=== PATIENT | male | born 1985 | race Caucasian/White ===

== ENCOUNTER 2016-07-29 11:40 | Inpatient (IN) | payer MEDICARE, OTHER ==
[~2016-07-29] VITALS: Ht 182.9 cm; Wt 146.8 kg
[~2016-07-29 11:40] MED LIST: AMLO-512 PO; ASPI81TA2 PO; ATOR40TA28 PO; LISI40TA4 PO; METO50TA5 PO; NITR.4 SL; TICA90TA PO; VITAD1000 PO; [UNRECOGNIZED DRUG - CODE] IM
[2016-07-29 12:22] LABS: BASOPHILS % (AUTO) 0.9 % (0.0-2.0); EOSINOPHILS % (AUTO) 6.1 % (1.0-6.0); HEMATOCRIT 26.8 % (41-53); HEMOGLOBIN 8.5 g/dL (13.5-17.5); LYMPHOCYTES # (AUTO) 1.4 K/uL (1.0-4.8); LYMPHOCYTES % (AUTO) 15.2 % (22.0-44.0); MEAN CORPUSCULAR HEMOGLOBIN 26.9 pg (26.0-34.0); MEAN CORPUSCULAR HGB CONC 31.8 G/dL (31.0-37.0); MEAN CORPUSCULAR VOLUME 85 fL (80-100); MONOCYTES # (AUTO) 0.8 K/uL (0.1-1.0); MONOCYTES % (AUTO) 8.5 % (2.0-9.0); NEUTROPHILS # (AUTO) 6.3 K/uL (1.8-7.7); NEUTROPHILS % (AUTO) 69.3 % (40.0-70.0); PLATELET COUNT (AUTO) 231 K/uL (150-450); RED BLOOD CELL COUNT(AUTO) 3.17 MIL/uL (4.50-5.90); RED CELL DISTRIBUTION WIDTH 16.5 % (11.5-14.5); WHITE BLOOD COUNT (AUTO) 9.1 K/uL (4.5-11.0)
[2016-07-29] MEDS ORDERED: ONDANSETRON HCL 4 MG/2 ML VIAL IVP ONE (12:45)
[2016-07-29 13:01] LABS: ALBUMIN 3.5 g/dL (3.4-5.0); BILIRUBIN,TOTAL 0.3 mg/dL (0.1-1.0); CALCIUM, TOTAL 7.8 mg/dL (8.8-10.5); CREATININE 15.78 mg/dL (0.60-1.30); TOTAL PROTEIN, SERUM 7.5 g/dL (6.4-8.2)
[2016-07-29 13:03] LABS: PROTHROMBIN TIME 10.5 SEC (9.4-11.6)
[2016-07-29 13:06] LABS: POTASSIUM 7.4 mmol/L (3.5-5.1)
[2016-07-29] MEDS ORDERED: DEXTROSE 50%-WATER 25 GM/50 ML SYRINGE IVP ONE (13:15)
[2016-07-29] MEDS ORDERED: SODIUM BICARBONATE [ADULT] 8.4% 50 MEQ/50 ML SYRINGE IVP ONE (13:15)
[2016-07-29] MEDS ORDERED: INSULIN REGULAR, HUMAN 100 UNITS/ML IVP ONE (13:15)
[2016-07-29] MEDS ORDERED: CALCIUM GLUCONATE 0.465 MEQ/ML 10 ML VIAL IVP ONE (13:15)
[2016-07-29] MEDS ORDERED: CALCIUM GLUCONATE 100 MG/ML 10 ML IVP ONE (13:30)
[2016-07-29] MEDS ORDERED: ALBUTEROL SULFATE 5 MG/ML 20 ML NEB SOLN [BULK] NEB ONE (13:45)
[2016-07-29] MEDS ORDERED: 0.9% SODIUM CHLORIDE 5 ML NEB SOLUTION NEB ONE ×2 (13:52)
[2016-07-29 17:20] LABS: BASOPHILS % (AUTO) 0.6 % (0.0-2.0); EOSINOPHILS % (AUTO) 2.4 % (1.0-6.0); HEMATOCRIT 25.6 % (41-53); HEMOGLOBIN 8.1 g/dL (13.5-17.5); LYMPHOCYTES # (AUTO) 1.2 K/uL (1.0-4.8); LYMPHOCYTES % (AUTO) 11.3 % (22.0-44.0); MEAN CORPUSCULAR HEMOGLOBIN 26.6 pg (26.0-34.0); MEAN CORPUSCULAR HGB CONC 31.5 G/dL (31.0-37.0); MEAN CORPUSCULAR VOLUME 84 fL (80-100); MONOCYTES # (AUTO) 0.6 K/uL (0.1-1.0); MONOCYTES % (AUTO) 6.2 % (2.0-9.0); NEUTROPHILS # (AUTO) 8.3 K/uL (1.8-7.7); NEUTROPHILS % (AUTO) 79.5 % (40.0-70.0); PLATELET COUNT (AUTO) 144 K/uL (150-450); RED BLOOD CELL COUNT(AUTO) 3.03 MIL/uL (4.50-5.90); RED CELL DISTRIBUTION WIDTH 16.2 % (11.5-14.5); WHITE BLOOD COUNT (AUTO) 10.5 K/uL (4.5-11.0)
[2016-07-29 17:47] LABS: CALCIUM, TOTAL 7.9 mg/dL (8.8-10.5); CREATININE 12.73 mg/dL (0.60-1.30)
[2016-07-29] MEDS ORDERED: LIDOCAINE HCL/PF 1% 2 ML VIAL INJ ONE (17:59)
[2016-07-29 18:04] VITALS: BP 158/107
[2016-07-29] MEDS ORDERED: ZOLPIDEM TARTRATE 5 MG TABLET PO PRN (19:00)
[2016-07-29] MEDS ORDERED: MAGNESIUM HYDROXIDE SUSPENSION 30 ML UDCUP PO PRN (19:00)
[2016-07-29] MEDS ORDERED: IPRATROPIUM BROMIDE 0.5 MG/2.5 ML NEB SOLUTION NEB PRN (19:00)
[2016-07-29] MEDS ORDERED: MORPHINE SULFATE 2 MG/ML SYRINGE IVP PRN (19:00)
[2016-07-29] MEDS ORDERED: BISACODYL 10 MG RECTAL RECTAL SUPPOSITORY PR PRN (19:00)
[2016-07-29] MEDS ORDERED: ACETAMINOPHEN 325 MG TABLET PO PRN (19:00)
[2016-07-29] MEDS ORDERED: ONDANSETRON HCL 4 MG/2 ML VIAL IVP PRN (19:00)
[2016-07-29] MEDS ORDERED: ALBUTEROL SULFATE 2.5 MG/0.5 ML NEB SOLUTION NEB PRN (19:00)
[2016-07-29] MEDS ORDERED: HYDROCODONE/ACETAMINOPHEN 5-325 MG TABLET PO PRN (19:00)
[2016-07-29] MEDS ORDERED: HydrALAZINE HCL 20 MG/ML VIAL IVP PRN (19:15)
[2016-07-29 19:47] VITALS: BP 160/90
[2016-07-29] MEDS ORDERED: PANTOPRAZOLE SODIUM 40 MG/VIAL IVP SCH (21:00)
[2016-07-29] MEDS: DOCUSATE SODIUM 100 MG CAPSULE PO SCH (21:08)
[2016-07-29] MEDS: PANTOPRAZOLE SODIUM 40 MG/VIAL IVP SCH (21:08)
[2016-07-29 23:38] VITALS: BP 141/50
[2016-07-30] MEDS ORDERED: LIDOCAINE HCL/PF 2% 5 ML VIAL INJ ONE
[2016-07-30] MEDS ORDERED: PROPOFOL 1% 20 ML VIAL IVP ONE
[2016-07-30 04:16] VITALS: BP 147/72
[2016-07-30 07:27] VITALS: BP 141/77
[2016-07-30 07:32] LABS: BASOPHILS # (AUTO) 0.08 K/uL (0.00-0.20); BASOPHILS % (AUTO) 0.8 % (0.0-2.0); EOSINOPHILS # (AUTO) 0.43 K/uL (0.00-0.70); HEMOGLOBIN 7.5 g/dL (13.5-17.5); LYMPHOCYTES # (AUTO) 1.2 K/uL (1.0-4.8); LYMPHOCYTES % (AUTO) 11.6 % (22.0-44.0); MEAN CORPUSCULAR HEMOGLOBIN 27.4 pg (26.0-34.0); MEAN CORPUSCULAR HGB CONC 32.5 G/dL (31.0-37.0); MEAN CORPUSCULAR VOLUME 84 fL (80-100); MONOCYTES # (AUTO) 0.6 K/uL (0.1-1.0); MONOCYTES % (AUTO) 5.9 % (2.0-9.0); NEUTROPHILS # (AUTO) 7.6 K/uL (1.8-7.7); NEUTROPHILS % (AUTO) 77.3 % (40.0-70.0); PLATELET COUNT (AUTO) 158 K/uL (150-450); RED BLOOD CELL COUNT(AUTO) 2.72 MIL/uL (4.50-5.90); RED CELL DISTRIBUTION WIDTH 16.8 % (11.5-14.5)
[2016-07-30 07:55] LABS: CALCIUM, TOTAL 7.4 mg/dL (8.8-10.5); CREATININE 13.65 mg/dL (0.60-1.30); MAGNESIUM 2.4 mg/dL (1.80-2.40); POTASSIUM 5.6 mmol/L (3.5-5.1)
[2016-07-30 08:03] LABS: WHITE BLOOD COUNT (AUTO) 13.9 K/uL (4.5-11.0)
[2016-07-30 08:33] LABS: PHOSPHORUS 11.6 mg/dL (2.5-4.9)
[2016-07-30] MEDS ORDERED: SODIUM CHLORIDE 0.9% 1,000 ML IV ONE ×3 (08:39→13:00)
[2016-07-30] MEDS ORDERED: ALBUMIN HUMAN 25%-12.5GM/50ML IV BOTTLE IV PRN (08:45)
[2016-07-30] MEDS ORDERED: MANNITOL 25%-12.5 GM/50 ML VIAL IVP PRN (08:45)
[2016-07-30 11:08] VITALS: BP 147/80
[2016-07-30 12:56] LABS: HEMATOCRIT 23.4 % (41-53); HEMOGLOBIN 7.5 g/dL (13.5-17.5)
[2016-07-30] MEDS ORDERED: MEPERIDINE-PF 25 MG/ML SYRINGE IVP PRN (15:15)
[2016-07-30] MEDS ORDERED: FentaNYL CITRATE-PF 100 MCG/2 ML VIAL IVP PRN (15:15)
[2016-07-30] MEDS ORDERED: HYDROmorphone 2 MG/ML SYRINGE IVP PRN (15:15)
[2016-07-30 16:36] VITALS: BP 158/83
[2016-07-30] MEDS: CHOLECALCIFEROL (VIT D3) 1,000 UNITS TABLET PO SCH (16:36)
[2016-07-30] MEDS: ATORVASTATIN CALCIUM 40 MG TABLET PO SCH (16:37)
[2016-07-30] MEDS: AmLODIPine BESYLATE 10 MG TABLET PO SCH (16:37)
[2016-07-30] MEDS: DOCUSATE SODIUM 100 MG CAPSULE PO SCH ×2 (16:37→20:42)
[2016-07-30] MEDS: PANTOPRAZOLE SODIUM 40 MG/VIAL IVP SCH ×2 (16:38→20:42)
[2016-07-30] MEDS: SEVELAMER CARBONATE 800 MG TABLET PO SCH (17:49)
[2016-07-30 19:27] VITALS: BP 141/78
[2016-07-30 20:40] LABS: HEMATOCRIT 21.2 % (41-53)
[2016-07-30] MEDS: OXYGEN THERAPY IH SCH (20:43)
[2016-07-30 20:45] LABS: HEMOGLOBIN 6.7 g/dL (13.5-17.5)
[2016-07-30 21:48] VITALS: BP 127/67
[2016-07-31] VITALS (22 sets, daily range): BP systolic 107–163; BP diastolic 58–99
[2016-07-31] MEDS ORDERED: 0.9% SODIUM CHLORIDE 10 ML SYRINGE IVP PRN (02:45)
[2016-07-31] MEDS ORDERED: SODIUM CHLORIDE 0.9% 500 ML IV ONE (03:55)
[2016-07-31] MEDS: OXYGEN THERAPY IH SCH (08:00)
[2016-07-31] MEDS: SEVELAMER CARBONATE 800 MG TABLET PO SCH ×2 (08:59→12:28)
[2016-07-31] MEDS: PANTOPRAZOLE SODIUM 40 MG/VIAL IVP SCH (08:59)
[2016-07-31] MEDS: CHOLECALCIFEROL (VIT D3) 1,000 UNITS TABLET PO SCH (09:00)
[2016-07-31] MEDS: AmLODIPine BESYLATE 10 MG TABLET PO SCH (09:00)
[2016-07-31] MEDS: ATORVASTATIN CALCIUM 40 MG TABLET PO SCH (09:00)
[2016-07-31] MEDS: DOCUSATE SODIUM 100 MG CAPSULE PO SCH (09:00)
[2016-07-31 11:34] LABS: BASOPHILS % (AUTO) 0.5 % (0.0-2.0); EOSINOPHILS % (AUTO) 4.6 % (1.0-6.0); HEMATOCRIT 23.1 % (41-53); HEMOGLOBIN 7.4 g/dL (13.5-17.5); LYMPHOCYTES # (AUTO) 0.8 K/uL (1.0-4.8); LYMPHOCYTES % (AUTO) 12.3 % (22.0-44.0); MEAN CORPUSCULAR HEMOGLOBIN 27.3 pg (26.0-34.0); MEAN CORPUSCULAR VOLUME 85 fL (80-100); MONOCYTES # (AUTO) 0.5 K/uL (0.1-1.0); MONOCYTES % (AUTO) 8.6 % (2.0-9.0); NEUTROPHILS # (AUTO) 4.6 K/uL (1.8-7.7); PLATELET COUNT (AUTO) 144 K/uL (150-450); RED BLOOD CELL COUNT(AUTO) 2.72 MIL/uL (4.50-5.90); RED CELL DISTRIBUTION WIDTH 15.8 % (11.5-14.5); WHITE BLOOD COUNT (AUTO) 6.2 K/uL (4.5-11.0)
[2016-07-31 11:43] LABS: CALCIUM, TOTAL 7.5 mg/dL (8.8-10.5); CREATININE 11.03 mg/dL (0.60-1.30); POTASSIUM 5.1 mmol/L (3.5-5.1)
[2016-07-31 11:47] LABS: MAGNESIUM 2.1 mg/dL (1.80-2.40)
[2016-08-01] MEDS ORDERED: EPOETIN ALFA 10,000 UNITS/ML VIAL SQ SCH (09:00)
== END 2016-07-31 18:00 | disposition home or self-care (01) | DRG 377 ==
LOC: EMS 11:43 → 5S 15:55
PROVIDERS: ADMIT Hospitalist; ATTEND Hospitalist
PROC: 5A1D60Z (ICD-10-PCS; 2016-07-29)
PROC: 0DB68ZX Excision of Stomach, Via Natural or Artificial Opening Endoscopic, Diagnostic (ICD-10-PCS; principal; 2016-07-30 14:30)
PROC: 30233N1 Transfusion of Nonautologous Red Blood Cells into Peripheral Vein, Percutaneous Approach (ICD-10-PCS; 2016-07-31)
DX: K92.2 Gastrointestinal hemorrhage, unspecified (principal); N18.6 End stage renal disease; E44.0 Moderate protein-calorie malnutrition; R78.81 Bacteremia; Z68.41 Body mass index [BMI] 40.0-44.9, adult; I12.0 Hypertensive chronic kidney disease with stage 5 chronic kidney disease or end stage renal disease; D50.0 Iron deficiency anemia secondary to blood loss (chronic); E87.5 Hyperkalemia; E78.5 Hyperlipidemia, unspecified; F14.90 Cocaine use, unspecified, uncomplicated; D63.1 Anemia in chronic kidney disease; I25.10 Atherosclerotic heart disease of native coronary artery without angina pectoris; E66.01 Morbid (severe) obesity due to excess calories; B95.61 Methicillin susceptible Staphylococcus aureus infection as the cause of diseases classified elsewhere; F19.10 Other psychoactive substance abuse, uncomplicated; K20.9 Esophagitis, unspecified; K29.60 Other gastritis without bleeding; E83.39 Other disorders of phosphorus metabolism; E21.3 Hyperparathyroidism, unspecified; F14.10 Cocaine abuse, uncomplicated; Z91.19 Patient's noncompliance with other medical treatment and regimen; Z99.2 Dependence on renal dialysis; Z82.49 Family history of ischemic heart disease and other diseases of the circulatory system; I25.2 Old myocardial infarction; Z95.5 Presence of coronary angioplasty implant and graft; Z87.891 Personal history of nicotine dependence
CPT/HCPCS: 82270; 82271; 83540; 83550; 83735; 84100; 84132; 85014; 85018; 86850; 86870; 86900; 86901; 86922; 87340; 88305; 88312; 88341; 88342; 90935; 93005; 94644; 96374; 96375; 99291; C9113; J0610; J0885; J1815; J2405; J2704; J3490; J7030; J7040; P9016

== ENCOUNTER → 2018-08-02 | Outpatient (CLI) | payer MEDICARE, OTHER ==
[~2018-08-02] MED LIST changes: -AMLO-512 PO; -ASPI81TA2 PO; -ATOR40TA28 PO; +GABA-531 PO; +LISI-662 PO; -LISI40TA4 PO; +METO50 PO; -METO50TA5 PO; +PHOSLOC PO; +REGADENOSON 0.4 MG/5 ML PF SYRINGE IVP ONE; +SESTAMIBI TC99M/UD ISOTOPE 1 EA INJ INJ ONE; +SEVEC800 PO; -TICA90TA PO; -VITAD1000 PO; -[UNRECOGNIZED DRUG - CODE] IM
[2018-08-02 09:10] VITALS: BP 153/98
[2018-08-02 10:43] VITALS: BP 157/85
== END | disposition home or self-care (01) ==
LOC: CARDMN 09:01
PROVIDERS: ATTEND Internal Medicine Cardiovascular Disease
DX: I08.1 Rheumatic disorders of both mitral and tricuspid valves (principal); I25.89 Other forms of chronic ischemic heart disease
CPT/HCPCS: 78452; 93017; 93306; A9500; J2785

== ENCOUNTER 2018-08-23 07:19 | Inpatient (IN) | payer MEDICARE, OTHER ==
[~2018-08-23] VITALS: Ht 182.9 cm; Wt 143.8 kg
[2018-08-23] VITALS (13 sets, daily range): BP systolic 149–186; BP diastolic 80–115
[~2018-08-23 07:19] MED LIST changes: -GABA-531 PO; -NITR.4 SL; -REGADENOSON 0.4 MG/5 ML PF SYRINGE IVP ONE; -SESTAMIBI TC99M/UD ISOTOPE 1 EA INJ INJ ONE; -SEVEC800 PO; +SODIUM CHLORIDE 0.9% 1,000 ML IV ONE; +TICA90TA PO
[2018-08-23] MEDS ORDERED: AMLO-512 PO (07:43)
[2018-08-23 07:58] LABS: BASOPHILS % (AUTO) 0.9 % (0.0-2.0); EOSINOPHILS % (AUTO) 6.9 % (1.0-6.0); HEMATOCRIT 33.3 % (41-53); HEMOGLOBIN 10.6 g/dL (13.5-17.5); LYMPHOCYTES % (AUTO) 18.2 % (22.0-44.0); MEAN CORPUSCULAR HEMOGLOBIN 29.3 pg (26.0-34.0); MEAN CORPUSCULAR HGB CONC 31.9 G/dL (31.0-37.0); MEAN CORPUSCULAR VOLUME 92 fL (80-100); MONOCYTES # (AUTO) 0.6 K/uL (0.1-1.0); MONOCYTES % (AUTO) 10.3 % (2.0-9.0); NEUTROPHILS # (AUTO) 3.5 K/uL (1.8-7.7); NEUTROPHILS % (AUTO) 63.7 % (40.0-70.0); PLATELET COUNT (AUTO) 111 K/uL (150-450); RED BLOOD CELL COUNT(AUTO) 3.63 MIL/uL (4.50-5.90); RED CELL DISTRIBUTION WIDTH 17.4 % (11.5-14.5)
[2018-08-23 08:02] LABS: CALCIUM, TOTAL 9.2 mg/dL (8.8-10.5); CREATININE 12.45 mg/dL (0.60-1.30); POTASSIUM 4.9 mmol/L (3.5-5.1)
[2018-08-23 08:08] LABS: ALBUMIN 3.9 g/dL (3.4-5.0); BILIRUBIN,TOTAL 0.5 mg/dL (0.1-1.0); PROTHROMBIN TIME 10.1 SEC (9.4-11.6); TOTAL PROTEIN, SERUM 8.1 g/dL (6.4-8.2)
[2018-08-23] MEDS ORDERED: LIDOCAINE/PF 1% 30 ML VIAL ONE (08:53)
[2018-08-23] MEDS ORDERED: HEPARIN SODIUM 1000 UNITS/NS 1,000 ML ONE (08:53)
[2018-08-23] MEDS ORDERED: IOHEXOL 300 MG/ML 150 ML VIAL ONE (08:53)
[2018-08-23] MEDS ORDERED: SODIUM BICARBONATE 50 MEQ/50 ML VIAL ONE (08:53)
[2018-08-23] MEDS ORDERED: HEPARIN SODIUM 2,000 UNITS in HEPARIN SODIUM 1000 UNITS/NS 1,000 ML IARTER ONE (09:39)
[2018-08-23] MEDS ORDERED: IOHEXOL 300 MG/ML 150 ML VIAL IARTER ONE (09:45)
[2018-08-23] MEDS ORDERED: LIDOCAINE 1% 30 ML/SOD BICARB 8.4% 4 ML SQ ONE (09:45)
[2018-08-23] MEDS ORDERED: HEPARIN SODIUM,PORCINE 5,000 UNITS/ML VIAL IVP ONE ×2 (09:45→10:30)
[2018-08-23] MEDS ORDERED: IOHEXOL 300 MG/ML 100 ML VIAL ONE (09:50)
[2018-08-23] MEDS ORDERED: IOHEXOL 300 MG/ML 50 ML VIAL ONE (09:50)
[2018-08-23] MEDS ORDERED: ASPIRIN 325 MG TABLET ONE (09:57)
[2018-08-23] MEDS ORDERED: TICAGRELOR 90 MG TABLET ONE (09:57)
[2018-08-23] MEDS ORDERED: TICAGRELOR 90 MG TABLET PO ONE (10:00)
[2018-08-23] MEDS ORDERED: ASPIRIN 325 MG TABLET PO ONE (10:00)
[2018-08-23] MEDS ORDERED: IOHEXOL 300 MG/ML 100 ML VIAL IARTER ONE (10:15)
[2018-08-23] MEDS ORDERED: IOHEXOL 300 MG/ML 50 ML VIAL IARTER ONE (10:15)
[2018-08-23] MEDS ORDERED: FentaNYL CITRATE-PF 100 MCG/2 ML VIAL IVP ONE (10:30)
[2018-08-23] MEDS ORDERED: FentaNYL CITRATE-PF 100 MCG/2 ML VIAL ONE (10:31)
[2018-08-23] MEDS ORDERED: ACETAMINOPHEN 325 MG TABLET PO PRN ×2 (10:45→12:00)
[2018-08-23] MEDS ORDERED: AmLODIPine BESYLATE 5 MG TABLET PO SCH (11:30)
[2018-08-23] MEDS ORDERED: MAGNESIUM HYDROXIDE SUSPENSION 30 ML UDCUP PO PRN (12:00)
[2018-08-23] MEDS: LISINOPRIL 20 MG TABLET PO SCH (12:12)
[2018-08-23] MEDS ORDERED: PNEUMOCOCCAL VACCINE POLYVALENT 0.5 ML VIAL [PPSV23] IM ONE (13:45)
[2018-08-23] MEDS: OxyCODONE HCL/ACETAMINOPHEN 5-325 MG TABLET PO PRN (18:37)
[2018-08-23] MEDS ORDERED: CloNIDine HCL 0.1 MG TABLET PO PRN (19:00)
[2018-08-23] MEDS: AmLODIPine BESYLATE 5 MG TABLET PO SCH (20:54)
[2018-08-23] MEDS: METOPROLOL TARTRATE 50 MG TABLET PO SCH (20:54)
[2018-08-23] MEDS: DOCUSATE SODIUM 100 MG CAPSULE PO SCH (20:54)
[2018-08-23] MEDS: TICAGRELOR 90 MG TABLET PO SCH (20:54)
[2018-08-24 04:59] VITALS: BP 141/77
[2018-08-24] MEDS: OxyCODONE HCL/ACETAMINOPHEN 5-325 MG TABLET PO PRN (05:26)
[2018-08-24 05:48] LABS: BASOPHILS % (AUTO) 0.7 % (0.0-2.0); EOSINOPHILS % (AUTO) 5.4 % (1.0-6.0); HEMOGLOBIN 10.5 g/dL (13.5-17.5); LYMPHOCYTES % (AUTO) 16.1 % (22.0-44.0); MEAN CORPUSCULAR HGB CONC 32.8 G/dL (31.0-37.0); MEAN CORPUSCULAR VOLUME 89 fL (80-100); MONOCYTES # (AUTO) 0.5 K/uL (0.1-1.0); MONOCYTES % (AUTO) 7.7 % (2.0-9.0); NEUTROPHILS # (AUTO) 4.5 K/uL (1.8-7.7); NEUTROPHILS % (AUTO) 70.1 % (40.0-70.0); PLATELET COUNT (AUTO) 103 K/uL (150-450); RED BLOOD CELL COUNT(AUTO) 3.61 MIL/uL (4.50-5.90); RED CELL DISTRIBUTION WIDTH 17.4 % (11.5-14.5)
[2018-08-24 06:11] LABS: ALBUMIN 3.6 g/dL (3.4-5.0); BILIRUBIN,TOTAL 0.6 mg/dL (0.1-1.0); CALCIUM, TOTAL 8.9 mg/dL (8.8-10.5); CREATININE 10.91 mg/dL (0.60-1.30); POTASSIUM 4.8 mmol/L (3.5-5.1); TOTAL PROTEIN, SERUM 7.7 g/dL (6.4-8.2)
[2018-08-24 07:38] VITALS: BP 156/82
[2018-08-24] MEDS: LISINOPRIL 20 MG TABLET PO SCH (08:03)
[2018-08-24] MEDS: DOCUSATE SODIUM 100 MG CAPSULE PO SCH (08:03)
[2018-08-24] MEDS: AmLODIPine BESYLATE 5 MG TABLET PO SCH (08:03)
[2018-08-24] MEDS: METOPROLOL TARTRATE 50 MG TABLET PO SCH (08:03)
[2018-08-24] MEDS: TICAGRELOR 90 MG TABLET PO SCH (08:04)
[2018-08-24] MEDS ORDERED: ASPIRIN 81 MG CHEWABLE TABLET PO SCH (09:00)
[2018-08-24] MEDS ORDERED: FAMOTIDINE 20 MG TABLET PO SCH (09:00)
[2018-08-24 11:25] VITALS: BP 155/92
== END 2018-08-24 13:35 | disposition home or self-care (01) | DRG 246 ==
LOC: CATHLAB 07:19 → ICU 07:20 → 5S 19:00
PROVIDERS: ADMIT Internal Medicine Cardiovascular Disease; ATTEND Internal Medicine Cardiovascular Disease
PROC: 027034Z Dilation of Coronary Artery, One Artery with Drug-eluting Intraluminal Device, Percutaneous Approach (ICD-10-PCS; principal; 2018-08-23)
PROC: 4A023N7 Measurement of Cardiac Sampling and Pressure, Left Heart, Percutaneous Approach (ICD-10-PCS; 2018-08-23)
PROC: B2111ZZ Fluoroscopy of Multiple Coronary Arteries using Low Osmolar Contrast (ICD-10-PCS; 2018-08-23)
PROC: 5A09357 Assistance with Respiratory Ventilation, Less than 24 Consecutive Hours, Continuous Positive Airway Pressure (ICD-10-PCS; 2018-08-23)
PROC: 5A1D70Z Performance of Urinary Filtration, Intermittent, Less than 6 Hours Per Day (ICD-10-PCS; 2018-08-23)
DX: I25.10 Atherosclerotic heart disease of native coronary artery without angina pectoris (principal); N18.6 End stage renal disease; I12.0 Hypertensive chronic kidney disease with stage 5 chronic kidney disease or end stage renal disease; Z68.41 Body mass index [BMI] 40.0-44.9, adult; E66.01 Morbid (severe) obesity due to excess calories; F14.10 Cocaine abuse, uncomplicated; D63.1 Anemia in chronic kidney disease; E78.00 Pure hypercholesterolemia, unspecified; E78.5 Hyperlipidemia, unspecified; G47.33 Obstructive sleep apnea (adult) (pediatric); Z79.899 Other long term (current) drug therapy; Z82.49 Family history of ischemic heart disease and other diseases of the circulatory system; Z87.891 Personal history of nicotine dependence; Z95.5 Presence of coronary angioplasty implant and graft; Z28.21 Immunization not carried out because of patient refusal
CPT/HCPCS: 87081; 92920; 92928; 93005; 94660; G0378; J1644; J3010; J3490; J7030; Q9967

== ENCOUNTER → 2020-08-28 | Outpatient (CLI) | payer MEDICARE, OTHER ==
[~2020-08-28] MED LIST changes: +AMLO-258 PO; -LISI-662 PO; +LISI-894 PO; +REGADENOSON 0.4 MG/5 ML PF SYRINGE IVP ONE; +SESTAMIBI TC99M/UD ISOTOPE 1 EA INJ INJ ONE; -SODIUM CHLORIDE 0.9% 1,000 ML IV ONE
[2020-08-28 08:30] VITALS: BP 141/95
[2020-08-28 10:34] VITALS: BP 137/85
== END | disposition home or self-care (01) ==
LOC: CARDMN 08:14
PROVIDERS: ATTEND Internal Medicine Cardiovascular Disease
DX: I51.7 Cardiomegaly (principal); I25.10 Atherosclerotic heart disease of native coronary artery without angina pectoris; I50.9 Heart failure, unspecified; I25.9 Chronic ischemic heart disease, unspecified
CPT/HCPCS: 93017; 93306; A9500

== ENCOUNTER 2021-12-08 16:23 | Emergency (ER) | payer MEDICARE, OTHER ==
[~2021-12-08] VITALS: Ht 185.4 cm; Wt 127.3 kg
[~2021-12-08 16:23] MED LIST changes: -REGADENOSON 0.4 MG/5 ML PF SYRINGE IVP ONE; -SESTAMIBI TC99M/UD ISOTOPE 1 EA INJ INJ ONE
[2021-12-08] MEDS ORDERED: PHENYLEPHRINE HCL 0.5% 15 ML NASAL SPRAY NASAL ONE (17:15)
[2021-12-08 17:22] LABS: BASOPHILS % (AUTO) 0.7 % (0.0-2.0); EOSINOPHILS % (AUTO) 7.9 % (1.0-6.0); HEMATOCRIT 29.3 % (41-53); HEMOGLOBIN 9.7 g/dL (13.5-17.5); LYMPHOCYTES # (AUTO) 0.8 K/uL (1.0-4.8); MEAN CORPUSCULAR HEMOGLOBIN 27.9 pg (26.0-34.0); MEAN CORPUSCULAR VOLUME 85 fL (80-100); MONOCYTES # (AUTO) 0.7 K/uL (0.1-1.0); MONOCYTES % (AUTO) 10.6 % (2.0-9.0); NEUTROPHILS # (AUTO) 4.4 K/uL (1.8-7.7); NEUTROPHILS % (AUTO) 68.8 % (40.0-70.0); PLATELET COUNT (AUTO) 148 K/uL (150-450); RED BLOOD CELL COUNT(AUTO) 3.46 MIL/uL (4.50-5.90); RED CELL DISTRIBUTION WIDTH 17.5 % (11.5-14.5)
[2021-12-08 17:30] LABS: CALCIUM, TOTAL 9.4 mg/dL (8.8-10.5); CREATININE 8.92 mg/dL (0.60-1.30); POTASSIUM 4.7 mmol/L (3.5-5.1)
[2021-12-08 17:36] LABS: ALBUMIN 3.7 g/dL (3.4-5.0); TOTAL PROTEIN, SERUM 7.4 g/dL (6.4-8.2)
[2021-12-08] MEDS ORDERED: LABETALOL HCL 5 MG/ML 20 ML VIAL IVP ONE (18:30)
[2021-12-08] MEDS ORDERED: AmLODIPine BESYLATE 10 MG TABLET PO ONE (18:30)
[2021-12-08] MEDS ORDERED: LISINOPRIL 10 MG TABLET PO ONE (19:00)
[2021-12-08 20:27] VITALS: BP 150/71
== END 2021-12-08 20:28 | disposition home or self-care (01) ==
LOC: EMS 16:23
DX: R04.0 Epistaxis (principal); I10 Essential (primary) hypertension; E78.00 Pure hypercholesterolemia, unspecified; F17.290 Nicotine dependence, other tobacco product, uncomplicated; Z79.899 Other long term (current) drug therapy
CPT/HCPCS: 99284; 96374; 80053; 85025; 36415; 30901; J3490

== ENCOUNTER 2021-12-21 19:53 | Emergency (ER) | payer MEDICARE, OTHER ==
[~2021-12-21] VITALS: Ht 177.8 cm; Wt 130.0 kg
[2021-12-21] MEDS ORDERED: PHENYLEPHRINE HCL 0.5% 15 ML NASAL SPRAY NASAL ONE (20:15)
[2021-12-21] MEDS ORDERED: TRANEXAMIC ACID 1,000 MG/10 ML VIAL TP ONE ×2 (20:30→23:30)
[2021-12-21 20:47] LABS: BASOPHILS % (AUTO) 0.3 % (0.0-2.0); EOSINOPHILS % (AUTO) 4.4 % (1.0-6.0); HEMATOCRIT 27.5 % (41-53); HEMOGLOBIN 9.1 g/dL (13.5-17.5); LYMPHOCYTES # (AUTO) 0.7 K/uL (1.0-4.8); LYMPHOCYTES % (AUTO) 7.9 % (22.0-44.0); MEAN CORPUSCULAR HEMOGLOBIN 28.8 pg (26.0-34.0); MEAN CORPUSCULAR VOLUME 87 fL (80-100); MONOCYTES # (AUTO) 0.5 K/uL (0.1-1.0); MONOCYTES % (AUTO) 5.9 % (2.0-9.0); NEUTROPHILS # (AUTO) 7.5 K/uL (1.8-7.7); NEUTROPHILS % (AUTO) 81.5 % (40.0-70.0); PLATELET COUNT (AUTO) 48 K/uL (150-450); RED BLOOD CELL COUNT(AUTO) 3.15 MIL/uL (4.50-5.90); RED CELL DISTRIBUTION WIDTH 19.4 % (11.5-14.5)
[2021-12-21 20:56] LABS: CALCIUM, TOTAL 9.1 mg/dL (8.8-10.5); CREATININE 6.89 mg/dL (0.60-1.30); POTASSIUM 3.8 mmol/L (3.5-5.1)
[2021-12-21 21:02] LABS: ALBUMIN 3.6 g/dL (3.4-5.0); BILIRUBIN,TOTAL 1.1 mg/dL (0.1-1.0); TOTAL PROTEIN, SERUM 7.4 g/dL (6.4-8.2)
[2021-12-21] MEDS ORDERED: CloNIDine HCL 0.2 MG TABLET PO ONE (21:30)
[2021-12-22 02:01] VITALS: BP 188/101
== END 2021-12-22 02:14 | disposition short-term general hospital (02) ==
LOC: EMS 20:04
DX: R04.0 Epistaxis (principal); I10 Essential (primary) hypertension; N18.6 End stage renal disease; Z99.2 Dependence on renal dialysis; Z98.890 Other specified postprocedural states
CPT/HCPCS: 99285; 71045; 80053; 82550; 83880; 84484; 85025; 36415; 30901; 93005; J3490

== ENCOUNTER 2022-05-09 10:32 | Emergency (ER) | payer MEDICARE, OTHER ==
[~2022-05-09] VITALS: Ht 182.9 cm; Wt 118.2 kg
[2022-05-09] MEDS ORDERED: LOSA-381 PO (10:49)
[2022-05-09] MEDS ORDERED: CLON-441 PO (10:49)
[2022-05-09] MEDS ORDERED: OXYMETAZOLINE HCL 0.05% 15 ML NASAL SPRAY NASAL ONE (12:45)
[2022-05-09 13:01] LABS: HEMATOCRIT 26.6 % (41-53); HEMOGLOBIN 8.5 g/dL (13.5-17.5); LYMPHOCYTES % (AUTO) 15.7 % (22.0-44.0); MEAN CORPUSCULAR HEMOGLOBIN 27.9 pg (26.0-34.0); MEAN CORPUSCULAR VOLUME 87 fL (80-100); MONOCYTES # (AUTO) 0.6 K/uL (0.1-1.0); MONOCYTES % (AUTO) 9.5 % (2.0-9.0); NEUTROPHILS # (AUTO) 4.3 K/uL (1.8-7.7); NEUTROPHILS % (AUTO) 65.8 % (40.0-70.0); PLATELET COUNT (AUTO) 103 K/uL (150-450); RED BLOOD CELL COUNT(AUTO) 3.04 MIL/uL (4.50-5.90); RED CELL DISTRIBUTION WIDTH 17.7 % (11.5-14.5)
[2022-05-09 13:14] LABS: INR 1.1 (0.9-1.1); PROTHROMBIN TIME 11.3 SEC (9.4-11.6)
[2022-05-09 13:18] LABS: CALCIUM, TOTAL 8.9 mg/dL (8.8-10.5); CREATININE 9.73 mg/dL (0.60-1.30); POTASSIUM 5.9 mmol/L (3.5-5.1)
[2022-05-09] MEDS ORDERED: METOPROLOL TARTRATE 50 MG TABLET PO ONE (13:30)
[2022-05-09] MEDS ORDERED: CloNIDine HCL 0.2 MG TABLET PO ONE (13:30)
[2022-05-09] MEDS ORDERED: LOSARTAN POTASSIUM 50 MG TABLET PO ONE (13:30)
[2022-05-09] MEDS ORDERED: AmLODIPine BESYLATE 10 MG TABLET PO ONE (13:30)
[2022-05-09] MEDS ORDERED: BACITRACIN 0.9 GM PACKET OINTMENT TP ONE (16:15)
[2022-05-09] MEDS ORDERED: BACITRACIN 28 GM OINTMENT TP ONE (16:45)
[2022-05-09] MEDS ORDERED: SODIUM POLYSTYRENE SULFONATE 15 GM/60 ML SUSPENSION BOTTLE PO ONE (17:30)
[2022-05-09 17:59] VITALS: BP 147/86
== END 2022-05-09 18:28 | disposition home or self-care (01) ==
LOC: EMS 10:46
DX: R04.0 Epistaxis (principal); I12.0 Hypertensive chronic kidney disease with stage 5 chronic kidney disease or end stage renal disease; N18.6 End stage renal disease; E87.5 Hyperkalemia; G47.33 Obstructive sleep apnea (adult) (pediatric); Z98.890 Other specified postprocedural states; Z99.2 Dependence on renal dialysis
CPT/HCPCS: 30901; 80048; 85025; 85610; 99284

== ENCOUNTER 2022-07-09 19:17 | Emergency (ER) | payer MEDICARE, OTHER ==
[~2022-07-09] VITALS: Ht 182.9 cm; Wt 118.0 kg
[~2022-07-09 19:17] MED LIST changes: +CLON-441 PO; +LOSA-381 PO
[2022-07-09] MEDS ORDERED: ASPIRIN 81 MG CHEWABLE TABLET PO ONE (20:00)
[2022-07-09] MEDS ORDERED: CloNIDine HCL 0.2 MG TABLET PO ONE (20:00)
[2022-07-09] MEDS ORDERED: NITROGLYCERIN 2% (1 GM=INCH) OINTMENT PACKET TP ONE (20:00)
[2022-07-09 20:26] LABS: HEMATOCRIT 31.7 % (41-53); LYMPHOCYTES # (AUTO) 0.8 K/uL (1.0-4.8); MEAN CORPUSCULAR HEMOGLOBIN 26.4 pg (26.0-34.0); MEAN CORPUSCULAR HGB CONC 31.5 G/dL (31.0-37.0); MEAN CORPUSCULAR VOLUME 84 fL (80-100); MONOCYTES # (AUTO) 0.7 K/uL (0.1-1.0); MONOCYTES % (AUTO) 8.7 % (2.0-9.0); NEUTROPHILS # (AUTO) 6.1 K/uL (1.8-7.7); NEUTROPHILS % (AUTO) 75.3 % (40.0-70.0); PLATELET COUNT (AUTO) 151 K/uL (150-450); RED BLOOD CELL COUNT(AUTO) 3.78 MIL/uL (4.50-5.90); RED CELL DISTRIBUTION WIDTH 18.6 % (11.5-14.5)
[2022-07-09 20:42] LABS: CALCIUM, TOTAL 9.3 mg/dL (8.8-10.5); CREATININE 9.93 mg/dL (0.60-1.30); POTASSIUM 4.4 mmol/L (3.5-5.1)
[2022-07-09 21:07] VITALS: BP 168/84
== END 2022-07-09 21:42 | disposition home or self-care (01) ==
LOC: EMS 19:18
DX: R00.2 Palpitations (principal); I10 Essential (primary) hypertension; F14.90 Cocaine use, unspecified, uncomplicated; F17.210 Nicotine dependence, cigarettes, uncomplicated; Z98.890 Other specified postprocedural states
CPT/HCPCS: 71045; 80048; 84484; 85025; 93005; 99285; 36415-L1; 36415-TC

== ENCOUNTER 2023-03-03 09:38 | Inpatient (IN) | payer MEDICARE, OTHER ==
[2023-03-03] VITALS (17 sets, daily range): BP systolic 107–155; BP diastolic 62–87; PULSE 74–150; RESP 12–20; TEMP 97.3–97.7; O2SAT 95–100
[~2023-03-03] VITALS: Ht 182.9 cm; Wt 113.2 kg
[2023-03-03] MEDS ORDERED: DEXTROSE 50%-WATER 25 GM/50 ML SYRINGE IVP ONE ×2 (10:00→10:30)
[2023-03-03] MEDS ORDERED: INSULIN REGULAR, HUMAN 100 UNITS/ML IVP ONE (10:00)
[2023-03-03] MEDS ORDERED: CALCIUM GLUCONATE 0.465 MEQ/ML 10 ML VIAL IVP ONE (10:00)
[2023-03-03] MEDS ORDERED: NITROGLYCERIN 2% (1 GM=INCH) OINTMENT PACKET TP ONE (10:00)
[2023-03-03 10:12] LABS: BASOPHILS % (AUTO) 1.1 % (0.0-2.0); EOSINOPHILS % (AUTO) 2.5 % (1.0-6.0); HEMATOCRIT 34.6 % (41-53); HEMOGLOBIN 10.9 g/dL (13.5-17.5); LYMPHOCYTES % (AUTO) 8.3 % (22.0-44.0); MEAN CORPUSCULAR HGB CONC 31.5 G/dL (31.0-37.0); MEAN CORPUSCULAR VOLUME 86 fL (80-100); NEUTROPHILS % (AUTO) 80.1 % (40.0-70.0); PLATELET COUNT (AUTO) 281 K/uL (150-450); RED BLOOD CELL COUNT(AUTO) 4.03 MIL/uL (4.50-5.90); RED CELL DISTRIBUTION WIDTH 18.1 % (11.5-14.5); WHITE BLOOD COUNT (AUTO) 12.5 K/uL (4.5-11.0)
[2023-03-03 10:27] LABS: INR 1.1 (0.9-1.1); PROTHROMBIN TIME 11.7 SEC (9.4-11.6)
[2023-03-03] MEDS ORDERED: PROPOFOL 1000 MG/ISO-OSM 100 ML ONE (10:29)
[2023-03-03] MEDS ORDERED: AMIODARONE HCL 360 MG in DEXTROSE 5%-WATER 242.8 ML IV ONE ×2 (10:30→15:00)
[2023-03-03] MEDS ORDERED: AMIODARONE HCL 150 MG in DEXTROSE 5%-WATER 97 ML IV ONE (10:30)
[2023-03-03 10:31] LABS: TROPONIN I-HIGH SENSITIVITY 141 ng/L (<76)
[2023-03-03] MEDS ORDERED: FentaNYL CITRATE PF 100 MCG/2 ML VIAL ONE (10:38)
[2023-03-03 10:47] LABS: ALBUMIN 3.9 g/dL (3.4-5.0); BILIRUBIN,TOTAL 0.5 mg/dL (0.1-1.0); CALCIUM, TOTAL 7.4 mg/dL (8.8-10.5)
[2023-03-03 10:48] LABS: CREATININE 23.18 mg/dL (0.60-1.30); POTASSIUM 8.2 mmol/L (3.5-5.1)
[2023-03-03 10:58] LABS: APPEARANCE,URINE CLEAR (CLEAR); BILIRUBIN,URINE NEGATIVE (NEGATIVE); COLOR,URINE LIGHT YELLOW (YELLOW); GLUCOSE, URINE (UA) 150-200 mg/dL (NEGATIVE); KETONES,URINE NEGATIVE (NEGATIVE); LEUKOCYTE ESTERASE ,URINE NEGATIVE (NEGATIVE); NITRATE,URINE NEGATIVE (NEGATIVE); OCCULT BLOOD,URINE SMALL (NEGATIVE); PH,URINE 6.5 (5.0-8.0); PROTEIN,URINE 300-600,SEE CONFIRM mg/dL (NEGATIVE); SPECIFIC GRAVITIY, URINE 1.011 (1.003-1.030); UROBILINOGEN,URINE <=1.0 mg/dL (<=1.0)
[2023-03-03 11:06] LABS: ABG BASE EXCESS -16.9 mmol/L (-2.0-3.0); ABG CARBOXYHEMOGLOBIN 0.2 % (0.0-1.5); ABG HCO3 12.3 mmol/L (22.0-26.0); ABG METHEMOGLOBIN 0.4 % (0.0-1.5); ABG OXYGEN CONTENT 16.9 mL/dL (15.0-23.0); ABG OXYGEN SATURATION 99.7 % (95.0-98.0); ABG OXYHEMOGLOBIN 99.1 % (94.0-100.0); ABG PCO2 39 mmHg (35-45); ABG TOTAL HEMOGLOBIN 11.4 G/dL (12.0-18.0); PO2, ARTERIAL BG 387.8 mmHg (92.0-100.0); SOURCE, BLOOD GAS ARTERIAL; TEMPERATURE, FAHRENHEIT, BG 97.4 FAHREN (96.0-98.6)
[2023-03-03 11:08] LABS: ABG A-A DIFF O2 288.2 mmHg (10-20.0); ABG PH 7.123 (7.350-7.450); ALLEN TEST, BLOOD GAS Positive; O2 DEVICE,BLOOD GAS VENTILATOR (ROOM AIR); SITE, BLOOD GAS RT RADIAL; VT, ABG 600 ml
[2023-03-03 11:09] LABS: PEEP,BG 5 cm H2O; SPONTANEOUS VT, BG 592 ml
[2023-03-03 11:10] LABS: BACTERIA,URINE None Seen /HPF (None Seen); SULFOSALICYLIC ACID,URINE 3+ (Negative); WBC,URINE None Seen /HPF (0-5)
[2023-03-03] MEDS ORDERED: MIDAZOLAM HCL 5 MG/ML VIAL IVP ONE (11:15)
[2023-03-03] MEDS: FentaNYL CIT 1000MCG/0.9% NACL 100 ML IV PRN ×3 (11:16→20:52)
[2023-03-03] MEDS: PROPOFOL 1000 MG/ISO-OSM 100 ML IV PRN ×5 (11:29→23:43)
[2023-03-03 11:39] LABS: CALCIUM, TOTAL 7.7 mg/dL (8.8-10.5); CREATININE 23.86 mg/dL (0.60-1.30)
[2023-03-03] MEDS ORDERED: MIDAZOLAM HCL 100 MG in SODIUM CHLORIDE 0.9% 180 ML IV PRN (12:15)
[2023-03-03] MEDS ORDERED: AMIODARONE HCL 540 MG in DEXTROSE 5%-WATER 239.2 ML IV ONE ×2 (16:30→21:00)
[2023-03-03 17:30] LABS: ALBUMIN 3.1 g/dL (3.4-5.0); BILIRUBIN,TOTAL 0.5 mg/dL (0.1-1.0); CALCIUM, TOTAL 7.4 mg/dL (8.8-10.5); CREATININE 14.21 mg/dL (0.60-1.30); MAGNESIUM 2.4 mg/dL (1.80-2.40); PHOSPHORUS 7.8 mg/dL (2.5-4.9); TOTAL PROTEIN, SERUM 7.4 g/dL (6.4-8.2)
[2023-03-03] MEDS: CefTRIAXone 1 GM/DEXTROSE 50 ML IV SCH (19:51)
[2023-03-03] MEDS ORDERED: SODIUM CHLORIDE 0.9% 250 ML IV ONE (19:54)
[2023-03-03 20:36] LABS: PH,URINE DRUG SCREEN 6.5 (5.0-8.0)
[2023-03-03 20:43] LABS: AMPHET/METH SCREEN,URINE NEGATIVE (NEGATIVE); BARBITURATE SCREEN, URINE NEGATIVE (NEGATIVE); BENZODIAZEPINES SCREEN,URINE NEGATIVE (NEGATIVE); CANNABINOID SCREEN,URINE NEGATIVE (NEGATIVE); COCAINE SCREEN,URINE POSITIVE (NEGATIVE); METHADONE SCREEN, URINE NEGATIVE (NEGATIVE); OPIATE SCREEN,URINE NEGATIVE (NEGATIVE); PHENCYCLIDINE SCREEN,URINE NEGATIVE (NEGATIVE)
[2023-03-03] MEDS: DOXYCYCLINE HYCLATE 100 MG in DEXTROSE 5%-WATER 100 ML IV SCH (20:53)
[2023-03-03 21:16] LABS: ALCOHOL, URINE DRUG SCREEN NEGATIVE (NEGATIVE)
[2023-03-04] VITALS (18 sets, daily range): BP systolic 86–166; BP diastolic 54–95; PULSE 62–82; RESP 18–21; TEMP 97.3–99.8; O2SAT 98–100
[2023-03-04] MEDS: PROPOFOL 1000 MG/ISO-OSM 100 ML IV PRN ×3 (01:35→07:22)
[2023-03-04] MEDS: FentaNYL CIT 1000MCG/0.9% NACL 100 ML IV PRN (05:49)
[2023-03-04 06:00] LABS: BASOPHILS % (AUTO) 1.2 % (0.0-2.0); EOSINOPHILS % (AUTO) 6.1 % (1.0-6.0); HEMATOCRIT 29.1 % (41-53); HEMOGLOBIN 9.5 g/dL (13.5-17.5); LYMPHOCYTES # (AUTO) 0.7 K/uL (1.0-4.8); LYMPHOCYTES % (AUTO) 11.7 % (22.0-44.0); MEAN CORPUSCULAR HEMOGLOBIN 27.9 pg (26.0-34.0); MEAN CORPUSCULAR HGB CONC 32.8 G/dL (31.0-37.0); MEAN CORPUSCULAR VOLUME 85 fL (80-100); MONOCYTES # (AUTO) 0.6 K/uL (0.1-1.0); MONOCYTES % (AUTO) 9.6 % (2.0-9.0); NEUTROPHILS # (AUTO) 4.4 K/uL (1.8-7.7); NEUTROPHILS % (AUTO) 71.4 % (40.0-70.0); PLATELET COUNT (AUTO) 209 K/uL (150-450); RED BLOOD CELL COUNT(AUTO) 3.42 MIL/uL (4.50-5.90); WHITE BLOOD COUNT (AUTO) 6.2 K/uL (4.5-11.0)
[2023-03-04 06:07] LABS: ALBUMIN 2.9 g/dL (3.4-5.0); BILIRUBIN,TOTAL 0.5 mg/dL (0.1-1.0); CALCIUM, TOTAL 7.6 mg/dL (8.8-10.5); CREATININE 15.92 mg/dL (0.60-1.30); POTASSIUM 5.6 mmol/L (3.5-5.1)
[2023-03-04] MEDS: DEXMEDETOMIDINE HCL 400 MCG in SODIUM CHLORIDE 0.9% 96 ML IV PRN ×4 (08:13→15:27)
[2023-03-04] MEDS: DOXYCYCLINE HYCLATE 100 MG in DEXTROSE 5%-WATER 100 ML IV SCH ×2 (10:25→21:08)
[2023-03-04] MEDS ORDERED: AMIODARONE HCL 750 MG in DEXTROSE 5%-WATER 485 ML IV SCH ×2 (10:30→15:00)
[2023-03-04] MEDS ORDERED: NOREPINEPHRINE 8 MG/0.9 % NACL 250 ML IV PRN (11:45)
[2023-03-04] MEDS ORDERED: SODIUM CHLORIDE 0.9% 2,000 ML ONE (11:49)
[2023-03-04 16:24] LABS: ABG A-A DIFF O2 144.5 mmHg (10-20.0); ABG BASE EXCESS -1.6 mmol/L (-2.0-3.0); ABG CARBOXYHEMOGLOBIN 0.9 % (0.0-1.5); ABG HCO3 23.3 mmol/L (22.0-26.0); ABG METHEMOGLOBIN 0.3 % (0.0-1.5); ABG OXYGEN CONTENT 14.2 mL/dL (15.0-23.0); ABG OXYGEN SATURATION 96.4 % (95.0-98.0); ABG OXYHEMOGLOBIN 95.2 % (94.0-100.0); ABG PCO2 40 mmHg (35-45); ABG PH 7.386 (7.350-7.450); ABG TOTAL HEMOGLOBIN 10.5 G/dL (12.0-18.0); ALLEN TEST, BLOOD GAS Positive; CPAP, BG 0 cm H2O; O2 DEVICE,BLOOD GAS VENTILATOR (ROOM AIR); PO2, ARTERIAL BG 94.7 mmHg (92.0-100.0); PRESSURE SUPPORT, BG 8 cm H2O; SITE, BLOOD GAS RT RADIAL; SOURCE, BLOOD GAS ARTERIAL; SPONTANEOUS VT, BG 550 ml; TEMPERATURE, FAHRENHEIT, BG 98.6 FAHREN (96.0-98.6); VENT MODE, BG CPAP (ROOM AIR)
[2023-03-04] MEDS: CefTRIAXone 1 GM/DEXTROSE 50 ML IV SCH (20:06)
[2023-03-04] MEDS ORDERED: MORPHINE SULFATE 2 MG/ML SYRINGE IVP PRN (22:15)
[2023-03-04 23:20] LABS: GLUCOSE,POINT OF CARE 90 MG/DL (70-110)
[2023-03-05] VITALS (7 sets, daily range): BP systolic 145–185; BP diastolic 87–109; PULSE 78–102; RESP 16–28; TEMP 98.1–98.9
[2023-03-05] MEDS: MORPHINE SULFATE 2 MG/ML SYRINGE IVP PRN ×4 (02:16→18:52)
[2023-03-05 06:12] LABS: BASOPHILS % (AUTO) 0.5 % (0.0-2.0); EOSINOPHILS % (AUTO) 2.1 % (1.0-6.0); HEMOGLOBIN 10.2 g/dL (13.5-17.5); LYMPHOCYTES # (AUTO) 0.5 K/uL (1.0-4.8); LYMPHOCYTES % (AUTO) 4.3 % (22.0-44.0); MEAN CORPUSCULAR HEMOGLOBIN 27.4 pg (26.0-34.0); MEAN CORPUSCULAR HGB CONC 31.9 G/dL (31.0-37.0); MEAN CORPUSCULAR VOLUME 86 fL (80-100); MONOCYTES # (AUTO) 1.2 K/uL (0.1-1.0); MONOCYTES % (AUTO) 10.1 % (2.0-9.0); NEUTROPHILS # (AUTO) 9.8 K/uL (1.8-7.7); PLATELET COUNT (AUTO) 214 K/uL (150-450); RED BLOOD CELL COUNT(AUTO) 3.72 MIL/uL (4.50-5.90); WHITE BLOOD COUNT (AUTO) 11.8 K/uL (4.5-11.0)
[2023-03-05 06:28] LABS: BILIRUBIN,TOTAL 0.6 mg/dL (0.1-1.0); CREATININE 14.97 mg/dL (0.60-1.30); POTASSIUM 5.2 mmol/L (3.5-5.1); TOTAL PROTEIN, SERUM 7.7 g/dL (6.4-8.2)
[2023-03-05 06:36] LABS: GLUCOSE,POINT OF CARE 80 MG/DL (70-110)
[2023-03-05] MEDS ORDERED: NIFEdipine 30 MG ER TABLET PO SCH (09:00)
[2023-03-05] MEDS ORDERED: METOPROLOL TARTRATE 25 MG TABLET PO SCH (09:00)
[2023-03-05] MEDS: DOXYCYCLINE HYCLATE 100 MG in DEXTROSE 5%-WATER 100 ML IV SCH ×2 (09:36→21:15)
[2023-03-05] MEDS: AMIODARONE HCL 200 MG TABLET PO SCH ×2 (10:28→20:12)
[2023-03-05] MEDS: AmLODIPine BESYLATE 5 MG TABLET PO SCH ×2 (10:28→20:12)
[2023-03-05] MEDS ORDERED: SEVE800T17 PO (11:51)
[2023-03-05] MEDS ORDERED: LANT500T7 PO (11:51)
[2023-03-05] MEDS ORDERED: HYDR-4527 PO (11:51)
[2023-03-05] MEDS ORDERED: CLON0.2T PO (11:51)
[2023-03-05] MEDS ORDERED: LOSA-382 PO (11:51)
[2023-03-05] MEDS ORDERED: VALS160T2 PO (11:51)
[2023-03-05] MEDS ORDERED: METO50 PO (11:51)
[2023-03-05] MEDS ORDERED: AMLO-258 PO (11:51)
[2023-03-05] MEDS ORDERED: ATOR40TA28 PO (11:51)
[2023-03-05] MEDS ORDERED: NIFE-79 PO (11:51)
[2023-03-05] MEDS: HydrALAZINE HCL 20 MG/ML VIAL IVP PRN (12:25)
[2023-03-05 12:37] LABS: GLUCOMETER DEV NAME(LOC) ICUN.5; GLUCOSE,POINT OF CARE 110 MG/DL (70-110)
[2023-03-05] MEDS: CefTRIAXone 1 GM/DEXTROSE 50 ML IV SCH (20:12)
[2023-03-05] MEDS: CARVEDILOL 6.25 MG TABLET PO SCH (20:12)
[2023-03-05] MEDS: CloNIDine HCL 0.1 MG TABLET PO SCH (20:12)
[2023-03-05] MEDS ORDERED: SODIUM CHLORIDE 0.9% 250 ML IV ONE (20:19)
[2023-03-05] MEDS ORDERED: NALOXONE HCL 1 MG/ML 2 ML SYRINGE IVP PRN (22:00)
[2023-03-05] MEDS ORDERED: DEXTROSE 50%-WATER 25 GM/50 ML SYRINGE IVP ONE (22:15)
[2023-03-05] MEDS ORDERED: INSULIN REGULAR, HUMAN 100 UNITS/ML SQ ONE (22:15)
[2023-03-05] MEDS: HYDROmorphone HCL 2 MG/ML SYRINGE IVP PRN (22:39)
[2023-03-06] VITALS (8 sets, daily range): BP systolic 141–207; BP diastolic 83–118; PULSE 88–144; RESP 18–20; TEMP 98–99.3
[2023-03-06] MEDS: HYDROmorphone HCL 2 MG/ML SYRINGE IVP PRN ×5 (03:32→22:30)
[2023-03-06] MEDS: CARVEDILOL 6.25 MG TABLET PO SCH (08:24)
[2023-03-06] MEDS: AMIODARONE HCL 200 MG TABLET PO SCH ×2 (08:24→22:32)
[2023-03-06] MEDS: AmLODIPine BESYLATE 5 MG TABLET PO SCH ×2 (08:24→22:31)
[2023-03-06] MEDS ORDERED: EPOETIN ALFA 10,000 UNITS/ML 2 ML VIAL SQ SCH (09:00)
[2023-03-06] MEDS: DOXYCYCLINE HYCLATE 100 MG in DEXTROSE 5%-WATER 100 ML IV SCH (10:17)
[2023-03-06 10:41] LABS: GLUCOMETER DEV NAME(LOC) 5N.2C; GLUCOSE,POINT OF CARE 146 MG/DL (70-110)
[2023-03-06] MEDS: SEVELAMER CARBONATE 800 MG TABLET PO SCH ×2 (12:05→18:01)
[2023-03-06 12:40] LABS: BASOPHILS % (AUTO) 0.4 % (0.0-2.0); HEMATOCRIT 33.7 % (41-53); HEMOGLOBIN 10.8 g/dL (13.5-17.5); LYMPHOCYTES # (AUTO) 0.6 K/uL (1.0-4.8); LYMPHOCYTES % (AUTO) 4.6 % (22.0-44.0); MEAN CORPUSCULAR HEMOGLOBIN 27.3 pg (26.0-34.0); MEAN CORPUSCULAR VOLUME 85 fL (80-100); MONOCYTES # (AUTO) 1.2 K/uL (0.1-1.0); MONOCYTES % (AUTO) 8.9 % (2.0-9.0); NEUTROPHILS # (AUTO) 11.5 K/uL (1.8-7.7); NEUTROPHILS % (AUTO) 83.1 % (40.0-70.0); PLATELET COUNT (AUTO) 217 K/uL (150-450); RED BLOOD CELL COUNT(AUTO) 3.95 MIL/uL (4.50-5.90); RED CELL DISTRIBUTION WIDTH 17.3 % (11.5-14.5); WHITE BLOOD COUNT (AUTO) 13.8 K/uL (4.5-11.0)
[2023-03-06 12:51] LABS: CALCIUM, TOTAL 7.9 mg/dL (8.8-10.5); CREATININE 16.48 mg/dL (0.60-1.30); POTASSIUM 5.8 mmol/L (3.5-5.1)
[2023-03-06 12:58] LABS: ALBUMIN 3.2 g/dL (3.4-5.0); BILIRUBIN,TOTAL 0.6 mg/dL (0.1-1.0); TOTAL PROTEIN, SERUM 8.7 g/dL (6.4-8.2)
[2023-03-06] MEDS ORDERED: SODIUM CHLORIDE 0.9% 1,000 ML ONE (13:58)
[2023-03-06] MEDS: HydrALAZINE HCL 20 MG/ML VIAL IVP PRN (14:47)
[2023-03-06] MEDS: HydrALAZINE HCL 25 MG TABLET PO SCH (16:11)
[2023-03-06] MEDS: CloNIDine HCL 0.1 MG TABLET PO SCH (22:30)
[2023-03-06] MEDS: CARVEDILOL 12.5 MG TABLET PO SCH (22:31)
[2023-03-07] VITALS: BP 138/91; PULSE 141; RESP 20; TEMP 99.2
[2023-03-07] MEDS: HydrALAZINE HCL 25 MG TABLET PO SCH ×4 (01:52→23:59)
[2023-03-07] MEDS: HYDROmorphone HCL 2 MG/ML SYRINGE IVP PRN ×4 (02:53→20:22)
[2023-03-07] MEDS ORDERED: DILTIAZEM HCL 5 MG/ML 5 ML VIAL IVP ONE ×2 (03:25→08:45)
[2023-03-07 04:30] VITALS: BP 127/78; PULSE 138; RESP 20; TEMP 98.5
[2023-03-07] MEDS ORDERED: ACETAMINOPHEN 325 MG TABLET PO ONE (05:30)
[2023-03-07 06:31] LABS: BASOPHILS % (AUTO) 0.4 % (0.0-2.0); EOSINOPHILS % (AUTO) 3.5 % (1.0-6.0); HEMATOCRIT 32.3 % (41-53); HEMOGLOBIN 10.4 g/dL (13.5-17.5); LYMPHOCYTES # (AUTO) 0.7 K/uL (1.0-4.8); MEAN CORPUSCULAR HEMOGLOBIN 27.2 pg (26.0-34.0); MEAN CORPUSCULAR HGB CONC 32.1 G/dL (31.0-37.0); MEAN CORPUSCULAR VOLUME 85 fL (80-100); MONOCYTES # (AUTO) 1.5 K/uL (0.1-1.0); MONOCYTES % (AUTO) 11.2 % (2.0-9.0); NEUTROPHILS # (AUTO) 10.6 K/uL (1.8-7.7); NEUTROPHILS % (AUTO) 79.9 % (40.0-70.0); PLATELET COUNT (AUTO) 244 K/uL (150-450); RED CELL DISTRIBUTION WIDTH 17.8 % (11.5-14.5); WHITE BLOOD COUNT (AUTO) 13.3 K/uL (4.5-11.0)
[2023-03-07 06:41] LABS: ALBUMIN 3.2 g/dL (3.4-5.0); BILIRUBIN,TOTAL 0.6 mg/dL (0.1-1.0); CALCIUM, TOTAL 8.8 mg/dL (8.8-10.5); CREATININE 14.45 mg/dL (0.60-1.30); TOTAL PROTEIN, SERUM 8.7 g/dL (6.4-8.2)
[2023-03-07 07:30] VITALS: BP 150/92; PULSE 134; RESP 19; TEMP 98
[2023-03-07] MEDS: AMIODARONE HCL 200 MG TABLET PO SCH (08:23)
[2023-03-07] MEDS: HYDROCODONE/ACETAMINOPHEN 5-325 MG TABLET PO PRN ×3 (08:25→16:42)
[2023-03-07] MEDS: SEVELAMER CARBONATE 800 MG TABLET PO SCH ×3 (08:25→17:42)
[2023-03-07] MEDS: CARVEDILOL 12.5 MG TABLET PO SCH ×2 (08:26→20:22)
[2023-03-07] MEDS: AmLODIPine BESYLATE 5 MG TABLET PO SCH ×2 (08:26→20:22)
[2023-03-07] MEDS: DILTIAZEM HCL 125 MG in DEXTROSE 5%-WATER 100 ML IV SCH (09:32)
[2023-03-07] MEDS ORDERED: DEXTROSE 50%-WATER 25 GM/50 ML SYRINGE IVP ONE ×2 (10:00→13:15)
[2023-03-07] MEDS ORDERED: INSULIN REGULAR, HUMAN 100 UNITS/ML IVP ONE ×2 (10:00→11:00)
[2023-03-07] MEDS ORDERED: SODIUM ZIRCONIUM CYCLOSILICATE 5 GM POWDER PACKET PO ONE (10:00)
[2023-03-07 11:29] VITALS: BP 143/51; PULSE 73; RESP 18; TEMP 98.2
[2023-03-07] MEDS ORDERED: INSULIN REGULAR, HUMAN 100 UNITS/ML SQ ONE (13:15)
[2023-03-07 15:33] VITALS: BP 139/90; PULSE 122; RESP 18; TEMP 98
[2023-03-07 20:11] VITALS: BP 170/94; PULSE 92; RESP 20; TEMP 98.2
[2023-03-07] MEDS: CloNIDine HCL 0.1 MG TABLET PO SCH (20:22)
[2023-03-08] VITALS (11 sets, daily range): BP systolic 104–179; BP diastolic 65–105; PULSE 70–132; RESP 18–22; TEMP 97.6–98.6
[2023-03-08] MEDS: HYDROmorphone HCL 2 MG/ML SYRINGE IVP PRN (01:04)
[2023-03-08 06:19] LABS: BASOPHILS % (AUTO) 0.6 % (0.0-2.0); EOSINOPHILS % (AUTO) 5.9 % (1.0-6.0); HEMATOCRIT 30.2 % (41-53); HEMOGLOBIN 9.8 g/dL (13.5-17.5); LYMPHOCYTES # (AUTO) 0.7 K/uL (1.0-4.8); LYMPHOCYTES % (AUTO) 5.8 % (22.0-44.0); MEAN CORPUSCULAR HEMOGLOBIN 27.6 pg (26.0-34.0); MEAN CORPUSCULAR HGB CONC 32.4 G/dL (31.0-37.0); MEAN CORPUSCULAR VOLUME 85 fL (80-100); MONOCYTES # (AUTO) 1.3 K/uL (0.1-1.0); MONOCYTES % (AUTO) 10.6 % (2.0-9.0); NEUTROPHILS # (AUTO) 9.7 K/uL (1.8-7.7); NEUTROPHILS % (AUTO) 77.1 % (40.0-70.0); PLATELET COUNT (AUTO) 252 K/uL (150-450); RED BLOOD CELL COUNT(AUTO) 3.54 MIL/uL (4.50-5.90); WHITE BLOOD COUNT (AUTO) 12.6 K/uL (4.5-11.0)
[2023-03-08 06:39] LABS: ALBUMIN 2.9 g/dL (3.4-5.0); BILIRUBIN,TOTAL 0.5 mg/dL (0.1-1.0); CALCIUM, TOTAL 8.3 mg/dL (8.8-10.5); CREATININE 15.89 mg/dL (0.60-1.30); TOTAL PROTEIN, SERUM 8.2 g/dL (6.4-8.2)
[2023-03-08 06:52] LABS: POTASSIUM 6.9 mmol/L (3.5-5.1)
[2023-03-08] MEDS ORDERED: DEXTROSE 50%-WATER 25 GM/50 ML SYRINGE IVP ONE ×2 (07:15)
[2023-03-08] MEDS ORDERED: INSULIN REGULAR, HUMAN 100 UNITS/ML IVP ONE ×3 (07:15→08:00)
[2023-03-08] MEDS ORDERED: CALCIUM GLUCONATE 100 MG/ML 10 ML IVP ONE (08:00)
[2023-03-08] MEDS: AmLODIPine BESYLATE 5 MG TABLET PO SCH (08:14)
[2023-03-08] MEDS: HydrALAZINE HCL 25 MG TABLET PO SCH ×2 (08:14→17:36)
[2023-03-08] MEDS: CARVEDILOL 12.5 MG TABLET PO SCH (08:14)
[2023-03-08] MEDS: HYDROCODONE/ACETAMINOPHEN 5-325 MG TABLET PO PRN ×3 (08:14→17:36)
[2023-03-08] MEDS: SEVELAMER CARBONATE 800 MG TABLET PO SCH ×3 (08:14→17:36)
[2023-03-08] MEDS: DILTIAZEM HCL 125 MG in DEXTROSE 5%-WATER 100 ML IV SCH (08:26)
[2023-03-08] MEDS ORDERED: ALPRAZolam 0.25 MG TABLET PO PRN (12:00)
[2023-03-08] MEDS ORDERED: DiphenhydrAMINE HCL 50 MG/ML VIAL IVP PRN (12:00)
[2023-03-08] MEDS ORDERED: SODIUM ZIRCONIUM CYCLOSILICATE 5 GM POWDER PACKET PO SCH (12:30)
[2023-03-08] MEDS ORDERED: APIXABAN 2.5 MG TABLET PO SCH (21:00)
== END 2023-03-08 18:00 | disposition left against medical advice (07) | DRG 640 ==
LOC: EMS 09:52 → ICU 11:32 → 5S 03-05 13:45
PROVIDERS: ADMIT Hospitalist; ATTEND Hospitalist
PROC: 0BH17EZ Insertion of Endotracheal Airway into Trachea, Via Natural or Artificial Opening (ICD-10-PCS; principal; 2023-03-03)
PROC: 5A1945Z Respiratory Ventilation, 24-96 Consecutive Hours (ICD-10-PCS; 2023-03-03)
PROC: 5A12012 Performance of Cardiac Output, Single, Manual (ICD-10-PCS; 2023-03-03)
PROC: 5A1D70Z Performance of Urinary Filtration, Intermittent, Less than 6 Hours Per Day (ICD-10-PCS; 2023-03-03)
PROC: 5A1D70Z Performance of Urinary Filtration, Intermittent, Less than 6 Hours Per Day (ICD-10-PCS; 2023-03-04)
PROC: 5A1D70Z Performance of Urinary Filtration, Intermittent, Less than 6 Hours Per Day (ICD-10-PCS; 2023-03-06)
PROC: 5A1D70Z Performance of Urinary Filtration, Intermittent, Less than 6 Hours Per Day (ICD-10-PCS; 2023-03-08)
DX: E87.5 Hyperkalemia (principal); I46.8 Cardiac arrest due to other underlying condition; N18.6 End stage renal disease; J96.00 Acute respiratory failure, unspecified whether with hypoxia or hypercapnia; I12.0 Hypertensive chronic kidney disease with stage 5 chronic kidney disease or end stage renal disease; I48.92 Unspecified atrial flutter; E87.20 Acidosis, unspecified; E11.22 Type 2 diabetes mellitus with diabetic chronic kidney disease; R00.0 Tachycardia, unspecified; E66.01 Morbid (severe) obesity due to excess calories; G47.33 Obstructive sleep apnea (adult) (pediatric); E11.40 Type 2 diabetes mellitus with diabetic neuropathy, unspecified; I48.0 Paroxysmal atrial fibrillation; Z53.29 Procedure and treatment not carried out because of patient's decision for other reasons; E78.5 Hyperlipidemia, unspecified; D63.1 Anemia in chronic kidney disease; I25.10 Atherosclerotic heart disease of native coronary artery without angina pectoris; Z82.49 Family history of ischemic heart disease and other diseases of the circulatory system; Z99.2 Dependence on renal dialysis; Z95.5 Presence of coronary angioplasty implant and graft; Z68.33 Body mass index [BMI] 33.0-33.9, adult; I25.2 Old myocardial infarction; Z91.199 Patient's noncompliance with other medical treatment and regimen due to unspecified reason
CPT/HCPCS: 36600; 71045; 80048; 80053; 80307; 81001; 81002; 82550; 82805; 82962; 83735; 83880; 84100; 84132; 84484; 85025; 85610; 85730; 87340; 90935; 92610; 92950; 93005; 93306; 94002; 94003; 99291; G0480; J0282; J0360; J0610; J0696; J0885; J1170; J1200; J1815; J2250; J2270; J2704; J3010; J3490; J7030; J7050; J7060; Q9967; 36415-L1; 36415-TC

== ENCOUNTER 2023-05-06 03:54 | Emergency (ER) | payer MEDICARE, OTHER ==
[~2023-05-06] VITALS: Ht 182.9 cm; Wt 90.0 kg
[~2023-05-06 03:54] MED LIST changes: +ATOR40TA28 PO; -CLON-441 PO; +CLON0.2T PO; +LANT500T7 PO; -LISI-894 PO; -LOSA-381 PO; +LOSA-382 PO; -PHOSLOC PO; +SEVE800T38 PO; -TICA90TA PO; +VALS160T2 PO
[2023-05-06 04:32] VITALS: BP 156/98; PULSE 115; RESP 22; TEMP 98.7
== END 2023-05-06 04:52 | disposition left against medical advice (07) ==
LOC: EMS 03:55
DX: R07.0 Pain in throat (principal); Z53.21 Procedure and treatment not carried out due to patient leaving prior to being seen by health care provider
CPT/HCPCS: 99281; Z7502